=== PATIENT | male | born 1990 | race Caucasian/White ===

== ENCOUNTER 2020-05-15 20:47 | Emergency (ER) | payer OTHER ==
[2020-05-15 20:56] VITALS: BMI 26.6
[2020-05-15] MEDS ORDERED: TETRACAINE 0.5% OPHTH SOLN 2 ML BOTTLE ONE (21:25)
[2020-05-16 00:17] VITALS: BP 111/72; PULSE 79; TEMP 98
== END 2020-05-16 00:38 | disposition home or self-care (01) ==
LOC: JER 20:47
DX: T59.91XA Toxic effect of unspecified gases, fumes and vapors, accidental (unintentional), initial encounter (principal)
CPT/HCPCS: 93005; 93010; 99283-25

== ENCOUNTER 2020-12-17 12:19 | Emergency (ER) | payer OTHER ==
[2020-12-17 12:44] VITALS: TEMP 98; BMI 26.6
[2020-12-17] MEDS ORDERED: KETOROLAC TROMETHAMINE 15 MG/ML VIAL IVPUSH ONE (13:35)
[2020-12-17] MEDS ORDERED: SODIUM CHLORIDE 0.9% 500 ML INFUS.BAG IV ONE (13:35)
[2020-12-17] MEDS ORDERED: diazePAM 2 MG TABLET PO ONE (13:35)
[2020-12-17] MEDS ORDERED: diazePAM 2 MG TABLET ONE (13:38)
[2020-12-17] MEDS ORDERED: KETOROLAC TROMETHAMINE 15 MG/ML VIAL ONE (13:38)
[2020-12-17] MEDS ORDERED: MAG HYDROX/AL HYDROX/SIMETH 30 ML UNIT-DOSE CUP PO ONE (13:44)
[2020-12-17] MEDS ORDERED: FAMOTIDINE 20 MG TABLET PO ONE (13:44)
[2020-12-17] MEDS ORDERED: LIDOCAINE VISCOUS 2% ORAL/TOP 15 ML UNIT-DOSE CUP MM ONE (13:49)
[2020-12-17] MEDS ORDERED: FAMOTIDINE 20 MG TABLET ONE (13:50)
[2020-12-17] MEDS ORDERED: LIDOCAINE VISCOUS 2% ORAL/TOP 15 ML UNIT-DOSE CUP ONE (13:50)
[2020-12-17] MEDS ORDERED: MAG HYDROX/AL HYDROX/SIMETH 30 ML UNIT-DOSE CUP ONE (13:50)
[2020-12-17 14:05] LABS: BASO % 1.3 % (0-2.0); EOS % 0.9 % (0-4.5); HEMATOCRIT 44.1 % (35.4-49); HEMOGLOBIN 15.4 GM/dL (11.7-16.9); MCH 30.7 pg (25.7-33.7); MEAN CELL VOLUME 87.5 fl (80-96); MEAN PLT VOLUME 9.7 fl (7.5-11.1); MONO % 7.5 % (3.8-10.2); NEUT % 60.3 % (42.8-82.8); PLATELET COUNT 207 10^3/uL (134-434); RBC 5.03 M/mm3 (4.00-5.60); RDW 12.9 % (11.9-15.9); WHITE BLOOD COUNT 7.3 K/mm3 (4.0-10.0)
[2020-12-17 14:34] LABS: CHLORIDE 106 mmol/L (98-107); SODIUM 139 mmol/L (136-145)
[2020-12-17 14:36] LABS: CALCIUM 8.5 mg/dL (8.5-10.1)
[2020-12-17 14:37] LABS: ALBUMIN 4.2 g/dl (3.4-5.0); ANION GAP 8 MMOL/L (8-16); BLOOD UREA NITROGEN 9.3 mg/dL (7-18); CO2 26 mmol/L (21-32); LIPASE 116 U/L (73-393)
[2020-12-17 14:39] LABS: BILIRUBIN,DIRECT 0.2 mg/dL (0.0-0.2); GLUCOSE,RANDOM 93 mg/dL (74-106)
[2020-12-17 14:40] LABS: CREATININE 0.9 mg/dL (0.55-1.3); SGOT/AST 14 U/L (15-37); SGPT/ALT 21 U/L (13-61)
[2020-12-17 14:41] LABS: BILIRUBIN,TOTAL 0.8 mg/dL (0.2-1); TOT PROT 7.5 g/dl (6.4-8.2)
[2020-12-17 14:42] LABS: ALK PHOS 83 U/L (45-117)
[2020-12-17 15:29] VITALS: BP 122/79; PULSE 81
== END 2020-12-17 16:19 | disposition home or self-care (01) ==
LOC: JER 12:19
PROC: 3E0333Z Introduction of Anti-inflammatory into Peripheral Vein, Percutaneous Approach (ICD-10-PCS; principal; 2020-12-17)
DX: R07.9 Chest pain, unspecified (principal)
CPT/HCPCS: 36415; 71046-TC-FY; 80053; 82248; 82550; 83690; 84484; 85025; 93005; 93010; 99285-25

== ENCOUNTER 2021-02-24 12:12 | Emergency (ER) | payer OTHER ==
[2021-02-24 12:52] VITALS: BP 108/81; PULSE 101; TEMP 98.1; BMI 26.6
== END 2021-02-24 14:26 | disposition home or self-care (01) ==
LOC: JERFT 12:12
DX: L70.9 Acne, unspecified (principal)
CPT/HCPCS: 99281-25

== ENCOUNTER 2023-12-30 20:10 | Emergency (ER) | payer SELFPAY ==
[2023-12-30 20:22] VITALS: TEMP 98.8; BMI 25.8
[2023-12-30 21:59] LABS: BASO % 0.7 % (0-2.0); EOS % 2.2 % (0-4.5); HEMATOCRIT 43.8 % (35.4-49); HEMOGLOBIN 14.9 GM/dL (11.7-16.9); LYMPH % 43.3 % (8-40); MCH 29.7 pg (25.7-33.7); MEAN CELL VOLUME 87.2 fl (80-96); MEAN PLT VOLUME 8.9 fl (7.5-11.1); NEUT % 46.8 % (42.8-82.8); PLATELET COUNT 218 10^3/uL (134-434); RBC 5.02 M/mm3 (4.00-5.60); RDW 12.5 % (11.9-15.9); WHITE BLOOD COUNT 7.7 K/mm3 (4.0-10.0)
[2023-12-30 22:22] LABS: POTASSIUM 4.2 mmol/L (3.5-5.1)
[2023-12-30 22:25] LABS: ALBUMIN 4.7 g/dl (3.4-5.0); CALCIUM 9.6 mg/dL (8.5-10.1)
[2023-12-30 22:28] LABS: BILIRUBIN,TOTAL 0.8 mg/dL (0.2-1)
[2023-12-30 22:29] LABS: CREATININE 0.9 mg/dL (0.55-1.3)
[2023-12-30 22:30] LABS: TOT PROT 7.8 g/dl (6.4-8.2)
[2023-12-30 22:55] VITALS: BP 123/80; PULSE 85; RESP 16
[2023-12-30 23:35] LABS: HIV INTERPRETATION NEGATIVE (NEGATIVE)
== END 2023-12-30 22:55 | disposition home or self-care (01) ==
LOC: JER 20:10
DX: R10.11 Right upper quadrant pain (principal)
CPT/HCPCS: 36415; 80053; 85025; 86803; 87389; 99283-25

== ENCOUNTER 2024-01-06 16:40 | Emergency (ER) | payer OTHER ==
[2024-01-06 16:55] VITALS: BP 123/79; PULSE 82; RESP 18; TEMP 98.2; BMI 25.8
== END 2024-01-06 17:54 | disposition home or self-care (01) ==
LOC: JERFT 16:40
DX: F45.8 Other somatoform disorders (principal)
CPT/HCPCS: 99283-25